=== PATIENT | female | born 1980 | race Caucasian/White ===

== ENCOUNTER → 2018-02-26 | Outpatient (CLI) | payer BC ==
[2018-02-26 14:55] LABS: Basophils % (A) 0 %; Eosinophils # (A) 0.1 k/uL (0-0.7); Eosinophils % (A) 2 %; HCT 38.9 % (34.0-46.0); HGB 12.9 gm/dL (11.4-16.0); Lymphocytes # (A) 1.2 k/uL (1.0-4.8); Lymphocytes % (A) 26 %; MCH 31.1 pg (25.0-35.0); MCHC 33.1 g/dL (31.0-37.0); MCV 93.8 fL (80.0-100.0); Mean Platelet Volume 6.9; Monocytes # (A) 0.3 k/uL (0-1.0); Monocytes % (A) 6 %; Neutrophils % (A) 64 %; Platelet Count 288 k/uL (150-450); RBC 4.15 m/uL (3.80-5.40); RDW 12.7 % (11.5-15.5); WBC 4.7 k/uL (3.8-10.6)
== END | disposition home or self-care (01) ==
LOC: LABPAT 14:12
PROVIDERS: ATTEND Obstetrics & Gynecology
DX: Z01.812 Encounter for preprocedural laboratory examination (principal)
CPT/HCPCS: 36415; 85025

== ENCOUNTER 2018-03-07 06:00 | Day surgery (SDC) | payer BC, OTHER ==
[2018-03-04 10:10] VITALS: BMI 28.1
--- NOTE | 2018-03-06 20:22 | P.HPOB ---
History of Present Illness H&P Date: 03/06/18 Chief Complaint: REED-3 This is a 37-year-old female 3 para 3 who presents for loop electrocautery excision procedure with colposcopy due to REED-3 found on colposcopy recently. Her Pap smear showed high-grade squamous intraepithelial lesion with positive high risk HPV. Her colposcopy results showed REED-2 and 3. She has consented to the above noted procedure for definitive treatment. Obstetrical history: . History of 3 vaginal deliveries. Gynecologic history: No history of sexual transmitted diseases. This was her first abnormal Pap smear and was on 12/18/2017 showing high-grade squamous intraepithelial lesion with positive high risk HPV. Social history: She is . She has a current partner since August 2017. She currently is using condoms. Review of Systems Constitutional: Reports fatigue, Denies chills, Denies fever Eyes: denies blurred vision, denies pain Ears, nose, mouth and throat: Denies headache, Denies sore throat Cardiovascular: Denies chest pain, Denies shortness of breath Respiratory: Denies cough Gastrointestinal: Reports heartburn, Denies abdominal pain Genitourinary: Denies dysuria, Denies hematuria Menstruation: Reports period normal Musculoskeletal: Denies myalgias Integumentary: Denies pruritus, Denies rash Neurological: Denies numbness, Denies weakness Psychiatric: Denies anxiety, Denies depression Endocrine: Reports fatigue, Denies weight change Hematologic/Lymphatic: Reports easy bruising Past Medical History Past Medical History: No Reported History History of Any Multi-Drug Resistant Organisms: None Reported Past Surgical History: Breast Surgery Additional Past Surgical History / Comment(s): Br Implants Past Anesthesia/Blood Transfusion Reactions: No Reported Reaction Past Psychological History: No Psychological Hx Reported Smoking Status: Current every day smoker Past Alcohol Use History: None Reported Past Drug Use History: None Reported - Past Family History Mother Family Medical History: Cancer Additional Family Medical History / Comment(s): Cervical CA Medications and Allergies Home Medications Medication Instructions Recorded Confirmed Type Ibuprofen [Motrin] 600 mg PO Q8HR PRN 03/04/18 03/04/18 History Multivitamins, Thera [Multivitamin 1 tab PO DAILY 03/04/18 03/04/18 History (formulary)] Phentermine HCl [Adipex P] 15 mg PO DAILY 03/04/18 03/04/18 History Allergies Allergy/AdvReac Type Severity Reaction Status Date / Time Penicillins Allergy Rash/Hives Verified 03/04/18 10:02 Exam Osteopathic Statement: *. No significant issues noted on an osteopathic structural exam other than those noted in the History and Physical/Consult. HEENT: Within normal limits Heart: Regular rate and rhythm Lungs: Clear to auscultation bilaterally Abdomen: Soft, nontender Pelvic exam: Uterus is small, nontender, retroverted, with no adnexal masses or tenderness noted. Extremities: Negative Homans Assessment and Plan (1) REED III (cervical intraepithelial neoplasia III) Status: Acute Code(s): D06.9 - CARCINOMA IN SITU OF CERVIX, UNSPECIFIED SNOMED Code(s): 28956520 Plan: Proceed with loop electrocautery excision procedure with colposcopy. I have discussed the risks, benefits, and alternative therapies for the above- mentioned procedure and for both sedation/anesthesia as well as necessary blood products administration, if indicated, as they pertain to this patient. The patient has indicated her understanding and acceptance of the risks and procedures discussed.
[~2018-03-07 06:00] MED LIST: DEXAMETHASONE SOD PHOSPHATE 10 MG/ML 1 ML VIAL IV ONE; HYDROmorphone 0.5 MG/0.5 ML SYRINGE IVP PRN; LACTATED RINGERS 1,000 ML IV SCH; ONDANSETRON 4 MG/2 ML VIAL IVP ONE; Pre Op ABX Message 1 EACH MISC MISCELLANE ONE
[2018-03-07] MEDS ORDERED: SCOPOLAMINE 1.5MG/72HR PATCH TRANSDERM ONE (06:33)
[2018-03-07] MEDS ORDERED: LIDOCAINE 1% INJ 10MG/ML (20 ML MDV) ONE (07:30)
[2018-03-07] MEDS ORDERED: fentaNYL (PF) 50 MCG/ML 2 ML AMP ONE (07:30)
[2018-03-07] MEDS ORDERED: PROPOFOL 10 MG/ML 20 ML VIAL IV ONE (07:30)
[2018-03-07] MEDS ORDERED: MIDAZOLAM 2 MG/2 ML VIAL ONE (07:30)
[2018-03-07] MEDS ORDERED: SUCCINYLCHOLINE CHLORIDE 100 MG/5 ML SYR IV ONE (07:30)
[2018-03-07] MEDS ORDERED: LIDOCAINE 1%-EPI 1:100,000 20 ML VIAL SQ ONE (07:50)
[2018-03-07] MEDS ORDERED: ACETIC ACID 15 DROPS/ML DROPS MISCELLANE ONE (07:50)
[2018-03-07] MEDS ORDERED: BUPIVACAINE (PF) 0.5% 30 ML VIAL SQ ONE (07:50)
[2018-03-07] MEDS ORDERED: FERRIC SUBSULFATE (MONSELS) JAR TOPICAL ONE (07:50)
--- NOTE | 2018-03-07 08:06 | P.OP ---
Date of Procedure: 03/07/18 Preoperative Diagnosis: REED 3 Postoperative Diagnosis: Cervical dysplasia Procedure(s) Performed: Colposcopy with loop electrocautery excision procedure Anesthesia: YURIYA Surgeon: Karol Zambrano Estimated Blood Loss (ml): 5 Pathology: other (Ectocervix with 6 o'clock position marked with a white suture and 12 o'clock position marked with a black suture, separate piece is 3 o'clock position) Condition: stable Disposition: same day Indications for Procedure: This is a 37-year-old female 3 para 3 who presents for loop electrocautery excision procedure with colposcopy due to REED-3 found on colposcopy recently. Her Pap smear showed high-grade squamous intraepithelial lesion with positive high risk HPV. Her colposcopy results showed REED-2 and 3. She has consented to the above noted procedure for definitive treatment. Operative Findings: Upon colposcopy, acetowhite and Lugol white areas were seen between 6 and 9 o' clock position. There is a separate area of Lugol white at approximately 9:00 and at 12:00. Some fine mosaicism was noted on the lower border. Transition zone was seen entirely. Description of Procedure: The patient was taken to the operating room where she is placed in the dorsal lithotomy position area and she is prepped and draped in the normal sterile fashion. Bladder is straight with a catheter. A coated bivalve speculum was placed in the patient's vagina. Next colposcopy is performed. Cervix is swabbed with acetic acid and blue light is used to visualize the cervix. The above noted findings are made. Next the cervix is swabbed with Lugol solution. The above noted findings are made. Next the cervix was injected with a 50-50 mixture of half percent Marcaine and 1% lidocaine with epinephrine. Approximately 6 mL were used to inject with a spinal needle circumferentially around the cervix. Next a large cutting loop was used to swipe from left to right on the lower border. Next the same procedure was used to swipe from left to right on the upper border. 35 W of cutting power were used. There was a small separate piece that was removed from the 3:00 border. Next ball-tipped cautery was used to cauterize the bed left behind. Excellent hemostasis was noted. Monsel solution was applied. Excellent hemostasis was noted. All instruments are removed from the vagina. All sponge and needle counts are correct. The patient is then taken to recovery room in stable condition.
[2018-03-07 08:18] VITALS: TEMP 97.6
[2018-03-07 08:23] VITALS: RESP 16
[2018-03-07] MEDS ORDERED: KETOROLAC 30 MG/ML 1 ML VIAL IVP ONE (08:30)
[2018-03-07] MEDS ORDERED: ONDANSETRON 4 MG/2 ML VIAL IVP ONE (08:40)
[2018-03-07 09:23] VITALS: BP 100/61; PULSE 69
== END 2018-03-07 09:42 | disposition home or self-care (01) ==
LOC: OR 06:00
PROVIDERS: ATTEND Obstetrics & Gynecology
DX: N87.1 Moderate cervical dysplasia (principal); Z88.0 Allergy status to penicillin; K21.9 Gastro-esophageal reflux disease without esophagitis; Z79.1 Long term (current) use of non-steroidal anti-inflammatories (NSAID); Z79.899 Other long term (current) drug therapy
CPT/HCPCS: 81025; 88307; 57460; J2250; J1100; J2405; J2001; J3010; J1885; J0330; J2704

== ENCOUNTER → 2023-04-02 | Outpatient (CLI) | payer OTHER ==
--- NOTE | 2023-04-03 08:24 | MM ---
Reason for Exam: Screening (asymptomatic). Baseline mammogram. Patient History: Menarche at age 14. First Full-Term at age 20. 2016, Bilateral Implants. Mother had ovarian cancer under age 50. Last menstrual period: 03/26/2023 Risk Values: Taina 5 year model risk: 0.5%. NCI Lifetime model risk: 8.1%. Prior Study Comparison: Patient's first Mammogram. No prior studies available for comparison. Tissue Density: There are scattered fibroglandular densities. Findings: Analyzed By CAD. Breast (seen bilaterally. Asymmetry left breast upper aspect on MLO view approximately 4.6 cm simple measuring 7 mm. Right breast: There is no suspicious group of microcalcifications or new suspicious mass in either breast. Overall Assessment: Incomplete: need additional imaging evaluation, BI-RAD 0 Management: Diagnostic Mammogram of the left breast. [facility] will attempt to contact patient to return for supplemental views and ultrasound if indicated. Patient should continue monthly self-breast exams. A clinical breast exam by your physician is recommended on an annual basis. This exam should not preclude additional follow-up of suspicious palpable abnormalities. Note on Taina scores and lifetime risk: 1. A Taina score greater than 3% is considered moderate risk. If this is the case, consider specialist referral to assess eligibility for a risk reducing agent. 2. If overall lifetime risk for the development of breast cancer is 20% or higher, the patient may qualify for future screening with alternating mammogram and breast MRI. Electronically signed and approved by: Niko Camarena DO
== END | disposition home or self-care (01) ==
LOC: RADMAMWWP 14:45
PROVIDERS: ATTEND Obstetrics & Gynecology
DX: Z12.31 Encounter for screening mammogram for malignant neoplasm of breast (principal); Z98.82 Breast implant status
CPT/HCPCS: 77067

== ENCOUNTER → 2023-04-10 | Outpatient (CLI) | payer OTHER ==
--- NOTE | 2023-04-10 15:07 | MM ---
Reason for Exam: Additional evaluation requested from abnormal screening. Last screening mammogram was performed less than 1 month ago. Patient History: Menarche at age 14. First Full-Term at age 20. 2016, Bilateral Implants. Mother had ovarian cancer under age 50. Risk Values: Taina 5 year model risk: 0.5%. NCI Lifetime model risk: 8.1%. Prior Study Comparison: 04/02/2023 Bilateral MG screening mammo implant/CAD, [facility]. Tissue Density: Left: The breast tissue is heterogeneously dense. This may lower the sensitivity of mammography. Findings: Analyzed By CAD. No evidence for persistent nodule or mass. No suspicious calcifications seen. Overall Assessment: Negative, BI-RAD 1 Management: Screening Mammogram of both breasts in 1 year. . Results were given to the patient verbally at the time of exam. Patient should continue monthly self-breast exams. A clinical breast exam by your physician is recommended on an annual basis. This exam should not preclude additional follow-up of suspicious palpable abnormalities. Note on Taina scores and lifetime risk: 1. A Taina score greater than 3% is considered moderate risk. If this is the case, consider specialist referral to assess eligibility for a risk reducing agent. 2. If overall lifetime risk for the development of breast cancer is 20% or higher, the patient may qualify for future screening with alternating mammogram and breast MRI. Electronically signed and approved by: Reid Fernandes M.D. Radiologis
== END | disposition home or self-care (01) ==
LOC: RADMAMWWP 08:07
PROVIDERS: ATTEND Obstetrics & Gynecology
DX: R92.8 Other abnormal and inconclusive findings on diagnostic imaging of breast (principal)
CPT/HCPCS: 77061; 77065

== ENCOUNTER → 2024-10-20 | Outpatient (CLI) | payer OTHER ==
--- NOTE | 2024-10-20 14:00 | US ---
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 FINDINGS/IMPRESSION: Suggested fat-containing hernia within the right inguinal canal at the patient' s region of concern, moves with valsalva = 2.5 x 0.8 x 1.9 cm. This could be confirmed with CT as cli nically indicated. [facility], , 10/20/2024 1:58 PM
== END | disposition home or self-care (01) ==
LOC: RADUSWWP 13:31
PROVIDERS: ATTEND Family Medicine
DX: R19.09 Other intra-abdominal and pelvic swelling, mass and lump (principal)